=== PATIENT | female | born 1995 | race Caucasian/White ===

== ENCOUNTER 2020-10-20 02:33 | Emergency (ER) | payer MEDICAID ==
[~2020-10-20] VITALS: Ht 160 cm; Wt 61.2 kg
[2020-10-20 02:35] VITALS: BP 157/73
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
[2020-10-20] MEDS ORDERED: AMMONIA AROMATIC 1 INHL INH ONE (02:37)
[2020-10-20] MEDS ORDERED: NALOXONE 0.4 MG/ML VIAL IM STA (02:40)
[2020-10-20] MEDS ORDERED: NALOXONE PFS 2 MG/2 ML SYR ONE (02:41)
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
[2020-10-20] MEDS ORDERED: ONDANSETRON 4 MG/2 ML VIAL ONE (03:03)
[2020-10-20] MEDS ORDERED: ONDANSETRON 4 MG/2 ML VIAL IM ONE (03:10)
--- NOTE | 2020-10-20 03:11 | NUR ---
patient vomiting; zofran 4mg IM given
--- NOTE | 2020-10-20 03:22 | NUR ---
PT MOVED TO ER BED 11
--- NOTE | 2020-10-20 04:16 | NUR ---
Patient resting in bed. PD at bedside. VSS. 98% on RA
[2020-10-20] MEDS ORDERED: ONDANSETRON 4 MG/2 ML VIAL IM STA (04:25)
[2020-10-20 04:59] VITALS: BP 157/73
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
== END 2020-10-20 05:00 ==
LOC: MED 02:33
DX: R41.82 Altered mental status, unspecified (principal); F11.10 Opioid abuse, uncomplicated; Z02.89 Encounter for other administrative examinations; V98.8XXA Other specified transport accidents, initial encounter; Y93.89 Activity, other specified; Y92.89 Other specified places as the place of occurrence of the external cause; Y99.8 Other external cause status
CPT/HCPCS: 96372; 99291; J2310; J2405; 99284